=== PATIENT | male | born 1935 | race Caucasian/White ===

== ENCOUNTER 2017-04-22 08:43 | Inpatient (IN) | payer MEDICARE, OTHER ==
[~2017-04-22] VITALS: Ht 172.7 cm; Wt 70.8 kg
[~2017-04-22 08:43] MED LIST: ALBU1.25 NEB; IPRA3AMP NEB; METO25TA2 PO; OSEL75CA PO; PANT40TA3 PO; PARO20TA99 PO
[2017-04-22 09:45] LABS: CREATININE 1.4 mg/dL (0.7-1.3); GFR 48.8
[2017-04-22] MEDS ORDERED: CHOL10003 PO (10:06)
[2017-04-22] MEDS ORDERED: IPRA12.9 IH (10:06)
[2017-04-22] MEDS ORDERED: CALC-30 PO (10:06)
[2017-04-22] MEDS ORDERED: ASPI-612 PO (10:06)
[2017-04-22] MEDS ORDERED: ALBU8.5H8 INH (10:06)
[2017-04-22] MEDS ORDERED: IOHEXOL 300 MG/ML 75 ML VIAL. IV ONE (10:15)
[2017-04-22 10:44] LABS: ALBUMIN 3.9 g/dL (3.4-5.0); ALBUMIN/GLOBULIN RATIO 1.2 (1.0-1.7); CALCIUM 8.6 mg/dL (8.5-10.1); CREATININE 1.4 mg/dL (0.7-1.3); GFR 48.8; POTASSIUM 4.6 mmol/L (3.5-5.1); TOTAL BILIRUBIN 0.6 mg/dL (0.2-1.0); TOTAL PROTEIN 7.2 g/dL (6.4-8.2)
[2017-04-22 10:48] LABS: BASO % 0 % (0-3); EOS # 0.1 x10^3/uL (0.0-0.7); EOS % 1 % (0-3); HEMATOCRIT 40.9 % (39.0-53.0); HEMOGLOBIN 13.6 g/dL (13.0-17.5); LYMPH # 0.4 x10^3/uL (1.0-4.8); LYMPH % 6 % (24-48); MEAN CORPUSCULAR HEMOGLOBIN 33 pg (25-35); MEAN CORPUSCULAR HGB CONC 33 g/dL (31-37); MEAN CORPUSCULAR VOLUME 98 fL (79-100); MONO # 0.3 x10^3/uL (0.0-1.1); MONO % 4 % (0-9); NEUT # 6.4 x10^3uL (1.8-7.7); NEUT % 88 % (31-73); PLATELET COUNT 185 x10^3/uL (140-400); RED BLOOD COUNT 4.19 x10^6/uL (4.30-5.70); RED CELL DISTRIBUTION WIDTH 15.1 % (11.5-14.5); WHITE BLOOD COUNT 7.2 x10^3/uL (4.0-11.0)
[2017-04-22] MEDS ORDERED: AZIT500T2 PO (10:51)
[2017-04-22] MEDS ORDERED: METH4TAB2 PO (10:51)
[2017-04-22] MEDS ORDERED: CLOB15CR2 TP (10:51)
[2017-04-22] MEDS ORDERED: SIMV20TA3 PO (10:51)
[2017-04-22] MEDS ORDERED: FURO-68 PO (10:51)
[2017-04-22] MEDS ORDERED: PRED20TA PO (10:51)
[2017-04-22] MEDS ORDERED: OMEP20CA9 PO (10:51)
[2017-04-22] MEDS ORDERED: AZIT250T PO (10:51)
--- NOTE | 2017-04-22 11:18 | RAD ---
CTA of the chest with contrast, 04/22/2017: History: Chest pain, elevated d-dimer, shingles Multidetector CT imaging was performed following an IV bolus injection of iodinated contrast material. Multiplanar reconstructions were produced including coronal MIP images. No filling defects are seen in the central pulmonary arteries to suggest pulmonary emboli. There is moderate calcific plaquing of the thoracic aorta without evidence of aneurysm. Minimal coronary artery calcifications are noted. 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 Small mediastinal lymph nodes are noted without evidence of pathologic enlargement. Mildly enlarged hilar lymph nodes are present bilaterally. These nodes measure approximately 17 mm in greatest diameter on both sides. There are several scattered linear opacities in the lungs compatible with scarring and/or atelectasis. No significant pulmonary consolidation or pulmonary mass is seen. There is no evidence of pleural fluid. There are multiple thoracic vertebral compression fractures. Vertebroplasty change is noted at one level in the upper thoracic spine. Similar findings were present on the lateral chest radiograph from 01/10/2017. IMPRESSION: 1. No CT evidence of central pulmonary emboli. 2. Calcific plaquing of the aorta and coronary arteries. 3. Mild bilateral hilar adenopathy. 4. 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 Automated exposure control 2. Adjustment of the mA and/or kV according to patient size 3. Use of iterative reconstruction technique
[2017-04-22 11:25] VITALS: BP 162/71
[2017-04-22 12:11] VITALS: BP 162/71
[2017-04-22 12:32] LABS: BACTERIA,URINE 0 /HPF (0-FEW); BILIRUBIN,URINE NEG (NEG); CLARITY,URINE CLEAR; COLOR,URINE STRAW; GLUCOSE,URINE NEG (NEG); NITRITE,URINE NEG (NEG); RBC,URINE 0 /HPF (0-2); SQUAMOUS EPITHELIAL CELL,UR FEW /LPF; UROBILINOGEN,URINE 0.2 mg/dL (0.2 mg/dL); WBC,URINE 0 /HPF (0-4)
[2017-04-22] MEDS ORDERED: IPRA3AMP NEB (12:55)
[2017-04-22] MEDS ORDERED: FLUO15CR TP (12:55)
[2017-04-22] MEDS ORDERED: UMEC1DIS IH (12:55)
[2017-04-22] MEDS ORDERED: ACYC800T PO (12:57)
[2017-04-22] MEDS ORDERED: IPRATRPIUM/ALBUTEROL 0.5/2.5MG 3 ML NEBU. NEB PRN (13:30)
[2017-04-22] MEDS ORDERED: NON FORMULARY ITEM (Methylprednisolone (Medrol) 1 PKG) PO SCH (13:30)
[2017-04-22] MEDS: fentaNYL PF 100 MCG/2 ML VIAL IV PRN ×3 (14:08→18:35)
[2017-04-22 15:25] VITALS: BP 132/70
[2017-04-22] MEDS: ALBUTEROL SULFATE 2.5 MG/3 ML NEBU. NEB SCH ×2 (16:00→20:00)
[2017-04-22] MEDS ORDERED: FLUT1DIS3 IH (16:24)
--- NOTE | 2017-04-22 17:25 | CARD ---
APPROVED REPORT EXAM: Two-dimensional and M-mode echocardiogram with Doppler and color Doppler. Other Information Quality : Good INDICATION Chest Pain Mitral Valve Repair and Repair of Aortic Anuerysm 2D DIMENSIONS RVDd2.4 (2.9-3.5cm)Left Atrium(2D)3.6 (1.6-4.0cm) IVSd1.1 (0.7-1.1cm)Aortic Root(2D)2.6 (2.0-3.7cm) LVDd5.1 (3.9-5.9cm)LVOT Diameter2.2 (1.8-2.4cm) PWd1.0 (0.7-1.1cm)LVDs2.3 (2.5-4.0cm) FS (%) 30.0 %SV103.8 ml LVEF(%)60.0 (>50%) Aortic Valve AoV Peak Олег.173.0cm/sAoV VTI35.2cm AO Peak GR.12.0mmHgLVOT Peak Олег.109.3cm/s LVOT VTI 25.65cmAO Mean GR.6mmHg DIMITRIOS (VMAX)2.63bc8GVH (VTI)2.81cm2 Mitral Valve MV E Jpbnorea33.5cm/sMV E Peak Gr.8mmHg MV DECEL [id number] A Jirnnksq376.0cm/s MV E Mean Gr.2mmHgE/A Ratio0.7 Tricuspid Valve TR P. Djsutiry032uy/sRAP ENYOGAQS2swAb TR Peak Gr.59jcHrMXKM87kvBt Pulmonary Vein S1 Pyevufau38.6cm/sD2 Doegrvya28.0cm/s LEFT VENTRICLE The left ventricle is normal size. There is normal left ventricular wall thickness. The left ventricu lar systolic function is normal and the ejection fraction is within normal range. The Ejection Fracti on is 55-60%. There is normal LV segmental wall motion. Transmitral Doppler flow pattern is Grade I-a bnormal relaxation pattern. RIGHT VENTRICLE The right ventricle is normal size. The right ventricular systolic function is normal. ATRIA The left atrium size is normal. The right atrium size is normal. The interatrial septum is intact wit h no evidence for an atrial septal defect or patent foramen ovale as noted on 2-D or Doppler imaging. AORTIC VALVE The aortic valve is calcified but opens well. Doppler and Color Flow revealed trace to mild aortic re gurgitation. There is no significant aortic valvular stenosis. MITRAL VALVE The mitral valve has been repaired. There is no evidence of mitral valve prolapse. There is no mitral valve stenosis. Doppler and Color-flow revealed mild to moderate eccentric mitral regurgitatant jet. TRICUSPID VALVE The tricuspid valve is normal in structure and function. Doppler and Color Flow revealed mild to mode rate tricuspid regurgitation. There is moderate pulmonary hypertension. The PA pressure was estimated at 42 mmHg. There is no tricuspid valve stenosis. PULMONIC VALVE The pulmonary valve is normal in structure and function. Doppler and Color Flow revealed no pulmonic valvular regurgitation. There is no pulmonic valvular stenosis. GREAT VESSELS The aortic root is normal in size. The ascending aorta is not well seen but is mildly enlarged. The I VC is normal in size and collapses >50% with inspiration. PERICARDIAL EFFUSION There is no evidence of significant pericardial effusion. Critical Notification Critical Value: No <Conclusion> The left ventricle is normal size. The left ventricular systolic function is normal and the ejection fraction is within normal range. The Ejection Fraction is 55-60%. There is no significant aortic valvular stenosis. Doppler and Color Flow revealed trace to mild aortic regurgitation. The mitral valve has been repaired. Doppler and Color-flow revealed mild to moderate eccentric mitral regurgitatant jet. There is no mitral valve stenosis. Doppler and Color Flow revealed mild to moderate tricuspid regurgitation. There is moderate pulmonary hypertension. The PA pressure was estimated at 42 mmHg. The ascending aorta is not well seen but is mildly enlarged.
[2017-04-22] MEDS ORDERED: MEPERIDINE PF 50 MG/ML VIAL. IV PRN (18:00)
[2017-04-22] MEDS: HYDROcodone/APAP 7.5/325MG 1 TAB TABLET PO PRN (18:36)
[2017-04-22] MEDS: BUDESONIDE 0.5 MG/2 ML NEBU NEB SCH (18:49)
[2017-04-22 18:58] VITALS: BP 154/77
[2017-04-22] MEDS: CLOBETASOL EMOLLIENT 0.05% TOPICAL CREAM 15GM TUBE. TP SCH (20:21)
[2017-04-22] MEDS: CHOLECALCIFEROL (VITAMIN D3) 400 UNIT TABLET PO SCH (20:21)
[2017-04-22] MEDS: CALCIUM CARBONATE 500 MG TABLET PO SCH (20:21)
[2017-04-22 22:45] VITALS: BP 131/63
--- NOTE | 2017-04-23 01:00 | CONS ---
DATE OF CONSULTATION: 04/22/2017 CHIEF COMPLAINT: Pain, left eye. HISTORY OF PRESENT ILLNESS: This 81-year-old white male is admitted to the hospital for treatment of herpes zoster. Because he had two separate complaints of left eye pain over the past [address] Woods asked for consultation to rule out any involvement of herpes zoster in and around the eye. The patient states he had an episode of pain in the left eye and a little bit in the right eye 2 weeks ago when he thought he got weed killer in the eye. He went to [facility] and they wash the eye out and the symptoms went away. Three days ago, the same symptoms returned and had a feeling of foreign body in the left eye and then he broke out with a rash on the left shoulder and arm. After evaluated by Dr. Woods he was admitted. He denies any discharge or loss of vision in the eye. PAST MEDICAL HISTORY: Includes COPD. MEDICATIONS: Please see the medical record for a complete list in the EMR. FAMILY HISTORY: Noncontributory. ALLERGIES: Unknown. SOCIAL HISTORY: The patient is retired. PHYSICAL EXAMINATION: The exam is done at bedside. Visual acuity near with correction is 20/20 in each eye. Intraocular pressure by Nemesio-Pen is 13 in the right and 14 in the left. Motility is full. Visual mendes are full. Pupils equal, round, and reactive to light. No afferent pupillary defect. External appears normal on the left side. There is no evidence of skin lesions that would represent vesicular rash that would be consistent with herpes zoster. Slit lamp examination reveals the lid lashes, conjunctiva, cornea, and anterior chamber and iris to be normal. He does have a posterior chamber intraocular lens. IMPRESSION: 1. No evidence of herpes zoster ophthalmicus. 2. Periodic symptoms of burning and irritation. No cause noted today, although symptoms compatible with dry eye or simply ____ inflammation resulting in periodic burning, especially with recent warm weather. PLAN: No ocular treatment required at the present time. If I can be of assistance, please do not hesitate to contact me. HUI RODRÍGUEZ, DO SOLORZANO: ARABELLA/enrrique JOB#: [id number] / [id number]
[2017-04-23 05:25] VITALS: BP 150/82
[2017-04-23] MEDS: HYDROcodone/APAP 7.5/325MG 1 TAB TABLET PO PRN ×2 (05:30→11:28)
[2017-04-23 05:52] LABS: BASO % 0 % (0-3); EOS # 0.2 x10^3/uL (0.0-0.7); EOS % 3 % (0-3); HEMATOCRIT 41.9 % (39.0-53.0); LYMPH # 1.3 x10^3/uL (1.0-4.8); LYMPH % 19 % (24-48); MEAN CORPUSCULAR HEMOGLOBIN 33 pg (25-35); MEAN CORPUSCULAR HGB CONC 33 g/dL (31-37); MEAN CORPUSCULAR VOLUME 98 fL (79-100); MONO % 15 % (0-9); NEUT # 4.4 x10^3uL (1.8-7.7); NEUT % 63 % (31-73); PLATELET COUNT 192 x10^3/uL (140-400); RED BLOOD COUNT 4.28 x10^6/uL (4.30-5.70); RED CELL DISTRIBUTION WIDTH 14.7 % (11.5-14.5); WHITE BLOOD COUNT 6.9 x10^3/uL (4.0-11.0)
[2017-04-23 06:00] LABS: CALCIUM 9.1 mg/dL (8.5-10.1); CREATININE 1.1 mg/dL (0.7-1.3); GFR 64.4; POTASSIUM 4.2 mmol/L (3.5-5.1)
[2017-04-23] MEDS: ALBUTEROL SULFATE 2.5 MG/3 ML NEBU. NEB SCH ×4 (06:25→20:32)
[2017-04-23] MEDS: PANTOPRAZOLE 40 MG TABLET. PO SCH (08:16)
[2017-04-23] MEDS: CALCIUM CARBONATE 500 MG TABLET PO SCH (08:18)
[2017-04-23] MEDS: PARoxetine 20 MG TABLET PO SCH (08:18)
[2017-04-23] MEDS: METOPROLOL SUCC 24HR ER 25 MG TAB.ER.24H. PO SCH ×2 (08:18→19:25)
[2017-04-23] MEDS: predniSONE 20 MG TABLET PO SCH (08:18)
[2017-04-23] MEDS: ASPIRIN ENTERIC COATED 81 MG TABLET.DR. PO SCH (08:19)
[2017-04-23] MEDS: CHOLECALCIFEROL (VITAMIN D3) 1,000 UNIT TABLET PO SCH (08:19)
[2017-04-23] MEDS: CLOBETASOL EMOLLIENT 0.05% TOPICAL CREAM 15GM TUBE. TP SCH ×2 (08:20→19:26)
[2017-04-23] MEDS: CHOLECALCIFEROL (VITAMIN D3) 400 UNIT TABLET PO SCH (08:20)
[2017-04-23] MEDS ORDERED: FUROSEMIDE 40 MG TABLET PO SCH (09:00)
[2017-04-23] MEDS ORDERED: ACYCLOVIR 200 MG CAPSULE PO SCH (09:00)
[2017-04-23] MEDS ORDERED: NON FORMULARY ITEM (Umeclidinium Brm/Vilanterol Tr (Anoro Ellipta 62.5-25 Mcg Inh) 1 EACH) IH SCH (09:00)
[2017-04-23] MEDS: BUDESONIDE 0.5 MG/2 ML NEBU NEB SCH ×2 (10:56→20:31)
[2017-04-23 10:57] VITALS: BP 132/61
[2017-04-23] MEDS: ACYCLOVIR 200 MG CAPSULE PO SCH ×2 (14:04→19:25)
[2017-04-23] MEDS: GABAPENTIN 100 MG CAPSULE. PO SCH ×2 (14:04→19:26)
--- NOTE | 2017-04-23 15:15 | PDOC2 ---
CONSULT Date of Admission DATE: 04/23/17 TIME: 15:07 Reason for Consult: Herpes zoster and chest discomfort Referring Physician: Dr. Woods Chief Complaint Shoulder and chest discomfort Source: Patient Problem List The patient is a pleasant 81-year-old male admitted for treatment of herpes zoster and evaluation of chest discomfort. His chest CTA yesterday showed no evidence of pulmonary emboli, it did show calcification of the aorta and the coronary vessels and mild bilateral hilar adenopathy. Cardiac workup has included normal troponins. An echocardiogram performed yesterday showed normal left ventricular systolic function with mild to moderate mitral and tricuspid regurgitation. Overall the patient states he feels well. His discomfort is in the area of his herpes zoster. It is not affected by exertion. Of note the patient was also evaluated by ophthalmology due to left eye pain. History of Present Illness Please see above. Cardiovascular: HTN Family History: Heart Disease Smoke: No Current Medications Current Medications Iohexol (Omnipaque 300 Mg/ml) 60 ml 1X ONCE IV Last administered on 04/22/17 10:45; Start 04/22/17 at 10:15; Stop 04/22/17 at 10:16; Status DC Aspirin (Aspirin Enteric Coated) 40.5 mg DAILY PO Last administered on 08:19; Start 04/23/17 at 09:00 Vitamin D (Vitamin D3) 1,000 unit DAILY PO Last administered on 04/23/17 08:19 ; Start 04/23/17 at 09:00 Clobetasol Propionate 1 marge BID TP Last administered on 04/23/17 08:20; Start 04/22/17 at 21:00 Furosemide (Lasix) 40 mg DAILY PO ; Start 04/23/17 at 09:00; Stop 04/23/17 at 09 :00; Status DC Metoprolol Succinate (Toprol Xl) 12.5 mg BID PO Last administered on 04/23/17 08:18; Start 04/23/17 at 09:00 Paroxetine HCl (Paxil) 40 mg DAILY PO Last administered on 04/23/17 08:18; Start 04/23/17 at 09:00 Prednisone (Prednisone) 20 mg DAILY PO Last administered on 04/23/17 08:18; Start 04/23/17 at 09:00 Acyclovir (Zovirax) 800 mg DAILY PO Last administered on 04/23/17 08:16; Start 04/23/17 at 09:00; Stop 04/23/17 at 09:12; Status DC Calcium Carbonate/ Glycine (Oscal) 500 mg BID PO Last administered on 08:18; Start 04/22/17 at 21:00; Stop 04/23/17 at 08:57; Status DC Pantoprazole Sodium (Protonix) 40 mg DAILYAC PO Last administered on 04/23/17 08:16; Start 04/23/17 at 07:30 Non-Formulary Medication 1 each DAILY IH ; Start 04/23/17 at 09:00; Stop at 09:00; Status DC Albuterol/ Ipratropium (Duoneb) 3 ml PRN TID PRN NEB SOA; Start 04/22/17 at 13: 30 Non-Formulary Medication 1 pkg 1X PO ; Start 04/22/17 at 13:30; Stop 04/22/17 at 13:48; Status DC Fentanyl Citrate (Fentanyl 2ml Vial) 25 mcg PRN Q2HR PRN IV PAIN Last administered on 04/22/17 18:35; Start 04/22/17 at 13:45 Vitamin D (Vitamin D3) 200 unit BID PO Last administered on 04/23/17 08:20; Start 04/22/17 at 21:00; Stop 04/23/17 at 08:58; Status DC Albuterol Sulfate (Ventolin) 2.5 mg RTQID NEB Last administered on 04/23/17 10 :56; Start 04/22/17 at 16:00 Budesonide (Pulmicort) 0.5 mg RTBID NEB Last administered on 04/23/17 10:56; Start 04/22/17 at 20:00 Meperidine HCl (Demerol) 25 mg PRN Q4HRS PRN IV PAIN; Start 04/22/17 at 18:00; Stop 04/22/17 at 18:29; Status DC Acetaminophen/ Hydrocodone Bitart (Lortab 7.5/325) 1 tab PRN Q6HRS PRN PO PAIN Last administered on 04/22/17 18:36; Start 04/22/17 at 18:15 Acetaminophen/ Hydrocodone Bitart (Lortab 7.5/325) 2 tab PRN Q6HRS PRN PO PAIN Last administered on 04/23/17 11:28; Start 04/22/17 at 18:15 Calcium/Vitamin D (Oscal D 500mg/ 200uts) 1 tab BIDWMEALS PO ; Start 04/23/17 at 17:00 Acyclovir (Zovirax) 800 mg TID PO Last administered on 04/23/17 14:04; Start 04/23/17 at 14:00 Gabapentin (Neurontin) 100 mg TID PO Last administered on 04/23/17 14:04; Start 04/23/17 at 14:00 Active Scripts Active Reported Advair 250-50 Diskus (Fluticasone/Salmeterol) 1 Each Disk.w.dev 1 Puff IH BID Acyclovir 800 Mg Tablet 800 Mg PO DAILY Anoro Ellipta 62.5-25 Mcg Inh (Umeclidinium Brm/Vilanterol Tr) 1 Each Disk.w.dev 1 Each IH DAILY Duoneb 0.5-3(2.5) Mg/3 Ml (Albuterol/Ipratropium) 3 Ml Ampul.neb 3 Ml NEB PRN TID Fluocinonide 15 Gm Cream..g. 1 Marge TP TID Omeprazole 20 Mg Capsule.dr 1 Cap PO DAILY Lasix (Furosemide) 40 Mg Tablet 1 Tab PO DAILY Zithromax (Azithromycin) 250 Mg Tablet 250 Mg PO DAILY Zithromax Tri-Ivan (Azithromycin) 500 Mg Tablet 1 Tab PO 1X Prednisone 20 Mg Tablet 1 Tab PO DAILY Medrol (Methylprednisolone) 4 Mg Tab.ds.pk 1 Pkg PO 1X Clobetasol Emollient 0.05% Crm (Clobetasol Propionate/Emoll) 15 Gm Cream..g. 15 Gm TP BID Calcium 500 + Vit D 400 Tablet (Calcium Carbonate/Vitamin D3) 1 Each Tablet 1 Each PO BID Aspirin Ec (Aspirin) 81 Mg Tablet. 0.5 Tab PO DAILY Atrovent Hfa (Ipratropium Nuevo) 12.9 Gm Hfa.aer.ad 2 Puff IH QID Proair Hfa Inhaler (Albuterol Sulfate) 8.5 Gm Hfa.aer.ad 2 Puff INH QID Vitamin D3 (Cholecalciferol (Vitamin D3)) 1,000 Unit Tablet 1 Tab PO DAILY Paxil (Paroxetine Hcl) 20 Mg Tablet 2 Tab PO DAILY last dose this morning next dose tomorrow Toprol Xl (Metoprolol Succinate) 25 Mg Tab.er.24h 0.5 Tab PO BID last dose this morning next dose tomorrow Allergies: Coded Allergies: clonazepam (Verified Allergy, Severe, rash, 04/22/17) tamsulosin (Verified Allergy, Severe, rash, 04/22/17) codeine (Verified Allergy, Intermediate, 04/22/17) morphine (Verified Allergy, Intermediate, 01/10/17) General: YES: Fatigue Skin: YES: Other (discomfort due to herpes zoster infection as above.) General: mild distress HEENT: Atraumatic Lungs: Clear to auscultation Heart: Regular rate Abdomen: Normal bowel sounds Extremities: No clubbing VITALS Vital Signs Date Time Temp Pulse Resp B/P (MAP) Pulse Ox O2 Delivery O2 Flow Rate FiO2 04/23/17 12:24 93 Room Air 04/23/17 10:57 97.4 68 16 132/61 (84) Labs Laboratory Tests Test 04/22/17 09:29 04/22/17 10:33 04/22/17 11:30 04/22/17 16:45 Sodium Level 140 mmol/L (136-145) Potassium Level 4.6 mmol/L (3.5-5.1) Chloride Level 106 mmol/L (98-107) Carbon Dioxide Level 25 mmol/L (21-32) Anion Gap 9 (6-14) Blood Urea Nitrogen 29 mg/dL (8-26) Creatinine 1.4 mg/dL (0.7-1.3) Estimated GFR (Cockcroft-Gault) 48.8 BUN/Creatinine Ratio 21 (6-20) Glucose Level 100 mg/dL (70-99) Calcium Level 8.6 mg/dL (8.5-10.1) Total Bilirubin 0.6 mg/dL (0.2-1.0) Aspartate Amino Transf (AST/SGOT) 19 U/L (15-37) Alanine Aminotransferase (ALT/SGPT) 28 U/L (16-63) Alkaline Phosphatase 88 U/L (46-116) Creatine Kinase 57 U/L (39-308) Troponin I Quantitative < 0.017 ng/mL (0-0.055) < 0.017 ng/mL (0-0.055) DR-Kai-V-Type Natriuretic Peptide 368 pg/mL (0-449) Total Protein 7.2 g/dL (6.4-8.2) Albumin 3.9 g/dL (3.4-5.0) Albumin/Globulin Ratio 1.2 (1.0-1.7) White Blood Count 7.2 x10^3/uL (4.0-11.0) Red Blood Count 4.19 x10^6/uL (4.30-5.70) Hemoglobin 13.6 g/dL (13.0-17.5) Hematocrit 40.9 % (39.0-53.0) Mean Corpuscular Volume 98 fL (79-100) Mean Corpuscular Hemoglobin 33 pg (25-35) Mean Corpuscular Hemoglobin Concent 33 g/dL (31-37) Red Cell Distribution Width 15.1 % (11.5-14.5) Platelet Count 185 x10^3/uL (140-400) Neutrophils (%) (Auto) 88 % (31-73) Lymphocytes (%) (Auto) 6 % (24-48) Monocytes (%) (Auto) 4 % (0-9) Eosinophils (%) (Auto) 1 % (0-3) Basophils (%) (Auto) 0 % (0-3) Neutrophils # (Auto) 6.4 x10^3uL (1.8-7.7) Lymphocytes # (Auto) 0.4 x10^3/uL (1.0-4.8) Monocytes # (Auto) 0.3 x10^3/uL (0.0-1.1) Eosinophils # (Auto) 0.1 x10^3/uL (0.0-0.7) Basophils # (Auto) 0.0 x10^3/uL (0.0-0.2) Urine Collection Type Unknown Urine Color Straw Urine Clarity Clear Urine pH 6.5 Urine Specific Warren 1.010 Urine Protein Neg (NEG-TRACE) Urine Glucose (UA) Neg mg/dL (NEG) Urine Ketones (Stick) Neg mg/dL (NEG) Urine Blood Neg (NEG) Urine Nitrite Neg (NEG) Urine Bilirubin Neg (NEG) Urine Urobilinogen Dipstick 0.2 mg/dL (0.2 mg/dL) Urine Leukocyte Esterase Neg (NEG) Urine RBC 0 /HPF (0-2) Urine WBC 0 /HPF (0-4) Urine Squamous Epithelial Cells Few /LPF Urine Bacteria 0 /HPF (0-FEW) Test 04/22/17 22:15 04/23/17 05:10 04/23/17 05:15 Troponin I Quantitative < 0.017 ng/mL (0-0.055) < 0.017 ng/mL (0-0.055) White Blood Count 6.9 x10^3/uL (4.0-11.0) Red Blood Count 4.28 x10^6/uL (4.30-5.70) Hemoglobin 14.0 g/dL (13.0-17.5) Hematocrit 41.9 % (39.0-53.0) Mean Corpuscular Volume 98 fL (79-100) Mean Corpuscular Hemoglobin 33 pg (25-35) Mean Corpuscular Hemoglobin Concent 33 g/dL (31-37) Red Cell Distribution Width 14.7 % (11.5-14.5) Platelet Count 192 x10^3/uL (140-400) Neutrophils (%) (Auto) 63 % (31-73) Lymphocytes (%) (Auto) 19 % (24-48) Monocytes (%) (Auto) 15 % (0-9) Eosinophils (%) (Auto) 3 % (0-3) Basophils (%) (Auto) 0 % (0-3) Neutrophils # (Auto) 4.4 x10^3uL (1.8-7.7) Lymphocytes # (Auto) 1.3 x10^3/uL (1.0-4.8) Monocytes # (Auto) 1.0 x10^3/uL (0.0-1.1) Eosinophils # (Auto) 0.2 x10^3/uL (0.0-0.7) Basophils # (Auto) 0.0 x10^3/uL (0.0-0.2) Sodium Level 140 mmol/L (136-145) Potassium Level 4.2 mmol/L (3.5-5.1) Chloride Level 105 mmol/L (98-107) Carbon Dioxide Level 26 mmol/L (21-32) Anion Gap 9 (6-14) Blood Urea Nitrogen 22 mg/dL (8-26) Creatinine 1.1 mg/dL (0.7-1.3) Estimated GFR (Cockcroft-Gault) 64.4 Glucose Level 101 mg/dL (70-99) Calcium Level 9.1 mg/dL (8.5-10.1) Magnesium Level 2.2 mg/dL (1.8-2.4) Images Chest CTA shows no pulmonary emboli, it does show calcification of the aorta and coronary arteries. There is mild bilateral hilar adenopathy. Echocardiogram shows normal left ventricular systolic function with mild to moderate mitral regurgitation and tricuspid regurgitation and pulmonary artery pressures of 42 mmHg. Assessment/Plan 1. Herpes zoster infection. Ongoing treatment as above. Evaluation by ophthalmology showed no significant involvement of the left eye. 2. Chest discomfort. Discomfort is difficult to separate from the patient's herpes zoster infection. Objective data shows no elevation in troponin. Echocardiogram shows normal left ventricular systolic function. The pain is not related to exertion. At this time would continue present treatments and repeat an EKG. 3. Hypertension. Under good control. 4. Further records pending. Thank you for allowing us to participate in the care of you patient. Problems: GEOVANNY BOSWELL MD Apr 23, 2017 15:15
[2017-04-23 15:43] VITALS: BP 122/63
[2017-04-23] MEDS: CALCIUM CARB/VIT D3 500/200 TABLET PO SCH (16:58)
--- NOTE | 2017-04-23 19:05 | EKG ---
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
[2017-04-23 19:16] VITALS: BP 134/74
--- NOTE | 2017-04-23 23:48 | PN ---
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 Blood pressure 150/82, respiratory rate 20, pulse 60, and afebrile. The patient has done well a little better, but still in quite a bit of pain, trying to regulate his pain medications as well as receiving IV acyclovir as he has failed outpatient therapy. He did have a positive D-dimer, basically no pulmonary emboli, but old thoracic vertebral compression fractures and basilar hilar adenopathy. OBJECTIVE: GENERAL: The patient otherwise is alert and oriented. VITAL SIGNS: Blood pressure 150/80, respiratory rate 20, pulse 60, afebrile. EXTREMITIES: A blistering rash down his left arm through his neck as noted. PLAN: We will continue to be IV acyclovir and make further evaluation on him as indicated. No evidence of herpes zoster ophthalmicus. Continue on IV acyclovir, pain medication for adjustment. TODD CARRION MD DR: NASEEM/enrrique JOB#: [id number] / [id number]
[2017-04-23 23:50] VITALS: BP 160/82
[2017-04-24] MEDS: ALBUTEROL SULFATE 2.5 MG/3 ML NEBU. NEB SCH ×4 (05:38→21:01)
[2017-04-24 06:01] VITALS: BP 155/83
[2017-04-24] MEDS: CLOBETASOL EMOLLIENT 0.05% TOPICAL CREAM 15GM TUBE. TP SCH ×2 (08:11→19:59)
[2017-04-24] MEDS: predniSONE 20 MG TABLET PO SCH (08:12)
[2017-04-24] MEDS: GABAPENTIN 100 MG CAPSULE. PO SCH ×3 (08:12→19:58)
[2017-04-24] MEDS: CHOLECALCIFEROL (VITAMIN D3) 1,000 UNIT TABLET PO SCH (08:12)
[2017-04-24] MEDS: PARoxetine 20 MG TABLET PO SCH (08:12)
[2017-04-24] MEDS: PANTOPRAZOLE 40 MG TABLET. PO SCH (08:12)
[2017-04-24] MEDS: METOPROLOL SUCC 24HR ER 25 MG TAB.ER.24H. PO SCH ×2 (08:12→19:58)
[2017-04-24] MEDS: CALCIUM CARB/VIT D3 500/200 TABLET PO SCH ×2 (08:12→17:01)
[2017-04-24] MEDS: ASPIRIN ENTERIC COATED 81 MG TABLET.DR. PO SCH (08:13)
[2017-04-24] MEDS: ACYCLOVIR 200 MG CAPSULE PO SCH ×3 (08:18→19:58)
[2017-04-24] MEDS: HYDROcodone/APAP 7.5/325MG 1 TAB TABLET PO PRN ×2 (09:32→19:57)
[2017-04-24] MEDS: BUDESONIDE 0.5 MG/2 ML NEBU NEB SCH ×2 (10:46→21:01)
[2017-04-24 11:02] VITALS: BP 115/60
--- NOTE | 2017-04-24 13:15 | PDOC ---
PROGRESS NOTES Assessment Assessment/Plan 1. Herpes zoster infection. Ongoing treatment as above. Evaluation by ophthalmology showed no significant involvement of the left eye. Treatment as above. 2. Chest discomfort. Discomfort is difficult to separate from the patient's herpes zoster infection. Objective data shows no elevation in troponin. Echocardiogram shows normal left ventricular systolic function. The pain is not related to exertion. The patient is feeling better today. At this time would continue present treatments. 3. Hypertension. Under good control. Subjective The patient looks and feels better today. Objective Vital Signs Date Time Temp Pulse Resp B/P (MAP) Pulse Ox O2 Delivery O2 Flow Rate FiO2 04/24/17 11:09 98 Room Air 04/24/17 11:02 98.3 69 20 115/60 (78) Intake and Output 04/24/17 07:00 Intake Total 640 ml Balance 640 ml Intake Oral 640 ml # Voids 5 Physical Exam Neck shows no JVD or bruit. Chest is clear to auscultation and percussion. CV is regular rate and rhythm. Abdomen is soft without masses or tenderness. Review of Relevant I have reviewed the following items marlon (where applicable) has been applied. Labs Laboratory Tests Test 04/22/17 16:45 04/22/17 22:15 04/23/17 05:10 04/23/17 05:15 Troponin I Quantitative < 0.017 ng/mL (0-0.055) < 0.017 ng/mL (0-0.055) < 0.017 ng/mL (0-0.055) White Blood Count 6.9 x10^3/uL (4.0-11.0) Red Blood Count 4.28 x10^6/uL (4.30-5.70) Hemoglobin 14.0 g/dL (13.0-17.5) Hematocrit 41.9 % (39.0-53.0) Mean Corpuscular Volume 98 fL (79-100) Mean Corpuscular Hemoglobin 33 pg (25-35) Mean Corpuscular Hemoglobin Concent 33 g/dL (31-37) Red Cell Distribution Width 14.7 % (11.5-14.5) Platelet Count 192 x10^3/uL (140-400) Neutrophils (%) (Auto) 63 % (31-73) Lymphocytes (%) (Auto) 19 % (24-48) Monocytes (%) (Auto) 15 % (0-9) Eosinophils (%) (Auto) 3 % (0-3) Basophils (%) (Auto) 0 % (0-3) Neutrophils # (Auto) 4.4 x10^3uL (1.8-7.7) Lymphocytes # (Auto) 1.3 x10^3/uL (1.0-4.8) Monocytes # (Auto) 1.0 x10^3/uL (0.0-1.1) Eosinophils # (Auto) 0.2 x10^3/uL (0.0-0.7) Basophils # (Auto) 0.0 x10^3/uL (0.0-0.2) Sodium Level 140 mmol/L (136-145) Potassium Level 4.2 mmol/L (3.5-5.1) Chloride Level 105 mmol/L (98-107) Carbon Dioxide Level 26 mmol/L (21-32) Anion Gap 9 (6-14) Blood Urea Nitrogen 22 mg/dL (8-26) Creatinine 1.1 mg/dL (0.7-1.3) Estimated GFR (Cockcroft-Gault) 64.4 Glucose Level 101 mg/dL (70-99) Calcium Level 9.1 mg/dL (8.5-10.1) Magnesium Level 2.2 mg/dL (1.8-2.4) Microbiology 04/22/17 Blood Culture - Preliminary, Resulted NO GROWTH AFTER 2 DAYS 04/22/17 Urine Culture - Final, Complete 04/22/17 Urine Culture Result 1 (SALVATORE) - Final, Complete Medications Current Medications Iohexol (Omnipaque 300 Mg/ml) 60 ml 1X ONCE IV Last administered on 04/22/17 10:45; Start 04/22/17 at 10:15; Stop 04/22/17 at 10:16; Status DC Aspirin (Aspirin Enteric Coated) 40.5 mg DAILY PO Last administered on 08:13; Start 04/23/17 at 09:00 Vitamin D (Vitamin D3) 1,000 unit DAILY PO Last administered on 04/24/17 08:12 ; Start 04/23/17 at 09:00 Clobetasol Propionate 1 marge BID TP Last administered on 04/24/17 08:11; Start 04/22/17 at 21:00 Furosemide (Lasix) 40 mg DAILY PO ; Start 04/23/17 at 09:00; Stop 04/23/17 at 09 :00; Status DC Metoprolol Succinate (Toprol Xl) 12.5 mg BID PO Last administered on 04/24/17 08:12; Start 04/23/17 at 09:00 Paroxetine HCl (Paxil) 40 mg DAILY PO Last administered on 04/24/17 08:12; Start 04/23/17 at 09:00 Prednisone (Prednisone) 20 mg DAILY PO Last administered on 04/24/17 08:12; Start 04/23/17 at 09:00 Acyclovir (Zovirax) 800 mg DAILY PO Last administered on 04/23/17 08:16; Start 04/23/17 at 09:00; Stop 04/23/17 at 09:12; Status DC Calcium Carbonate/ Glycine (Oscal) 500 mg BID PO Last administered on 08:18; Start 04/22/17 at 21:00; Stop 04/23/17 at 08:57; Status DC Pantoprazole Sodium (Protonix) 40 mg DAILYAC PO Last administered on 04/24/17 08:12; Start 04/23/17 at 07:30 Non-Formulary Medication 1 each DAILY IH ; Start 04/23/17 at 09:00; Stop at 09:00; Status DC Albuterol/ Ipratropium (Duoneb) 3 ml PRN TID PRN NEB SOA; Start 04/22/17 at 13: 30 Non-Formulary Medication 1 pkg 1X PO ; Start 04/22/17 at 13:30; Stop 04/22/17 at 13:48; Status DC Fentanyl Citrate (Fentanyl 2ml Vial) 25 mcg PRN Q2HR PRN IV PAIN Last administered on 04/22/17 18:35; Start 04/22/17 at 13:45 Vitamin D (Vitamin D3) 200 unit BID PO Last administered on 04/23/17 08:20; Start 04/22/17 at 21:00; Stop 04/23/17 at 08:58; Status DC Albuterol Sulfate (Ventolin) 2.5 mg RTQID NEB Last administered on 04/24/17 10 :46; Start 04/22/17 at 16:00 Budesonide (Pulmicort) 0.5 mg RTBID NEB Last administered on 04/24/17 10:46; Start 04/22/17 at 20:00 Meperidine HCl (Demerol) 25 mg PRN Q4HRS PRN IV PAIN; Start 04/22/17 at 18:00; Stop 04/22/17 at 18:29; Status DC Acetaminophen/ Hydrocodone Bitart (Lortab 7.5/325) 1 tab PRN Q6HRS PRN PO PAIN Last administered on 04/24/17 09:32; Start 04/22/17 at 18:15 Acetaminophen/ Hydrocodone Bitart (Lortab 7.5/325) 2 tab PRN Q6HRS PRN PO PAIN Last administered on 04/23/17 11:28; Start 04/22/17 at 18:15 Calcium/Vitamin D (Oscal D 500mg/ 200uts) 1 tab BIDWMEALS PO Last administered on 04/24/17 08:12; Start 04/23/17 at 17:00 Acyclovir (Zovirax) 800 mg TID PO Last administered on 04/24/17 08:18; Start 04/23/17 at 14:00 Gabapentin (Neurontin) 100 mg TID PO Last administered on 04/24/17 08:12; Start 04/23/17 at 14:00 Active Scripts Active Reported Advair 250-50 Diskus (Fluticasone/Salmeterol) 1 Each Disk.w.dev 1 Puff IH BID Acyclovir 800 Mg Tablet 800 Mg PO DAILY Anoro Ellipta 62.5-25 Mcg Inh (Umeclidinium Brm/Vilanterol Tr) 1 Each Disk.w.dev 1 Each IH DAILY Duoneb 0.5-3(2.5) Mg/3 Ml (Albuterol/Ipratropium) 3 Ml Ampul.neb 3 Ml NEB PRN TID Fluocinonide 15 Gm Cream..g. 1 Marge TP TID Omeprazole 20 Mg Capsule.dr 1 Cap PO DAILY Lasix (Furosemide) 40 Mg Tablet 1 Tab PO DAILY Zithromax (Azithromycin) 250 Mg Tablet 250 Mg PO DAILY Zithromax Tri-Ivan (Azithromycin) 500 Mg Tablet 1 Tab PO 1X Prednisone 20 Mg Tablet 1 Tab PO DAILY Medrol (Methylprednisolone) 4 Mg Tab.ds.pk 1 Pkg PO 1X Clobetasol Emollient 0.05% Crm (Clobetasol Propionate/Emoll) 15 Gm Cream..g. 15 Gm TP BID Calcium 500 + Vit D 400 Tablet (Calcium Carbonate/Vitamin D3) 1 Each Tablet 1 Each PO BID Aspirin Ec (Aspirin) 81 Mg Tablet.dr 0.5 Tab PO DAILY Atrovent Hfa (Ipratropium [place]) 12.9 Gm Hfa.aer.ad 2 Puff IH QID Proair Hfa Inhaler (Albuterol Sulfate) 8.5 Gm Hfa.aer.ad 2 Puff INH QID Vitamin D3 (Cholecalciferol (Vitamin D3)) 1,000 Unit Tablet 1 Tab PO DAILY Paxil (Paroxetine Hcl) 20 Mg Tablet 2 Tab PO DAILY last dose this morning next dose tomorrow Toprol Xl (Metoprolol Succinate) 25 Mg Tab.er.24h 0.5 Tab PO BID last dose this morning next dose tomorrow Vitals/I & O Vital Sign - Last 24 Hours 04/23/17 04/23/17 04/23/17 04/23/17 15:43 16:08 19:16 19:25 Temp 97.9 97.8 Pulse 72 81 81 Resp 20 20 B/P (MAP) 122/63 (82) 134/74 (94) 134/74 Pulse Ox 93 95 97 O2 Delivery Room Air Room Air Room Air 04/23/17 04/23/17 04/23/17 04/23/17 19:52 20:30 20:34 23:50 Pulse 75 Resp 20 B/P (MAP) 160/82 (108) Pulse Ox 94 92 O2 Delivery Room Air Room Air Room Air Room Air 04/24/17 04/24/17 04/24/17 04/24/17 05:40 06:01 08:00 08:12 Temp 97.6 Pulse 66 66 Resp 20 B/P (MAP) 155/83 (107) 155/83 Pulse Ox 96 94 O2 Delivery Room Air Room Air Room Air 04/24/17 04/24/17 04/24/17 04/24/17 09:32 10:46 10:48 11:02 Temp 98.3 Pulse 69 Resp 20 B/P (MAP) 115/60 (78) Pulse Ox 94 96 96 98 O2 Delivery Room Air Room Air Room Air Room Air 04/24/17 11:09 Pulse Ox 98 O2 Delivery Room Air Intake and Output 04/23/17 04/23/17 04/24/17 15:00 23:00 07:00 Intake Total 360 ml 160 ml 120 ml Balance 360 ml 160 ml 120 ml GEOVANNY BOSWELL MD Apr 24, 2017 13:15
[2017-04-24 16:11] VITALS: BP 152/71
[2017-04-24 19:59] VITALS: BP 127/69
[2017-04-24 23:00] VITALS: BP 125/71
--- NOTE | 2017-04-25 05:33 | PN ---
DATE: SUBJECTIVE: The patient in with herpes zoster shingles. The patient is resting fairly comfortably, although still fairly weak, running low grade temperature. The patient is developing new lesions of the shingles, still receiving some IV pain medications as well for the pain, which is not controlled just with oral medications. Otherwise, he is alert and oriented. Speech fluent and spontaneous and appropriate. PHYSICAL EXAMINATION: VITAL SIGNS: Blood pressure 120/60, respiratory rate 20, pulse 70, afebrile presently. GENERAL: The patient alert and oriented. LUNGS: Clear. CARDIOVASCULAR: Stable. EXTREMITIES: The patient does have new rashes on his left arm, with blistering. I have increased his medications to the element of the acyclovir to help take down the spread of this disease that did not respond to outpatient therapy otherwise. IMPRESSION: Herpes zoster, intractable pain, mild confusion. PLAN: Continue on the present drug regimen, pain management. TODD CARRION MD DR: NASEEM/enrrique JOB#: [id number] / [id number]
[2017-04-25] MEDS: ALBUTEROL SULFATE 2.5 MG/3 ML NEBU. NEB SCH ×2 (05:38→11:08)
[2017-04-25 06:31] VITALS: BP 139/76
[2017-04-25 08:10] VITALS: BP 139/76
[2017-04-25] MEDS: ACYCLOVIR 200 MG CAPSULE PO SCH (08:10)
[2017-04-25] MEDS: HYDROcodone/APAP 7.5/325MG 1 TAB TABLET PO PRN (08:10)
[2017-04-25] MEDS: METOPROLOL SUCC 24HR ER 25 MG TAB.ER.24H. PO SCH (08:10)
[2017-04-25] MEDS: CALCIUM CARB/VIT D3 500/200 TABLET PO SCH (08:10)
[2017-04-25] MEDS: GABAPENTIN 100 MG CAPSULE. PO SCH (08:11)
[2017-04-25] MEDS: ASPIRIN ENTERIC COATED 81 MG TABLET.DR. PO SCH (08:11)
[2017-04-25] MEDS: PANTOPRAZOLE 40 MG TABLET. PO SCH (08:11)
[2017-04-25] MEDS: CHOLECALCIFEROL (VITAMIN D3) 1,000 UNIT TABLET PO SCH (08:11)
[2017-04-25] MEDS: PARoxetine 20 MG TABLET PO SCH (08:11)
[2017-04-25] MEDS: predniSONE 20 MG TABLET PO SCH (08:12)
[2017-04-25] MEDS: CLOBETASOL EMOLLIENT 0.05% TOPICAL CREAM 15GM TUBE. TP SCH (08:12)
[2017-04-25] MEDS ORDERED: DOCUSATE SODIUM 100 MG CAPSULE PO SCH (09:00)
[2017-04-25] MEDS: BUDESONIDE 0.5 MG/2 ML NEBU NEB SCH (11:08)
[2017-04-25] MEDS ORDERED: GABA-585 PO (13:07)
[2017-04-25] MEDS ORDERED: ACYC-63 PO (13:07)
[2017-04-25] MEDS ORDERED: HYDR-2762 PO (13:07)
[2017-04-25] MEDS ORDERED: DONE10TA61 PO (13:09)
[2017-04-25] MEDS ORDERED: ACYCLOVIR 200 MG CAPSULE PO SCH (14:00)
--- NOTE | 2017-06-08 18:46 | DS ---
DATE OF DISCHARGE: 04/25/2017 HOSPITAL COURSE: An 81-year-old gentleman. The patient was initially admitted with treatment for Herpes zoster. The patient also has severe eye pain. Dr. Rosario was consulted, was kind enough to review the patient. He had been at the [facility] and I watched his eye out 3 days ago, but the feeling of something was still in there. The patient was cleared of any Herpes zoster ophthalmicus and otherwise was given IV acyclovir. He was also having some chest pain and weakness there. The patient was seen by Dr. 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 The patient otherwise made good progress during the rest of his hospitalization. Cardiac enzymes were all within range. Serology did show a positive Herpes zoster virus, antibody IgG greater than 4000. The patient otherwise made good progress during the rest of his hospitalization. There were no complications. IMPRESSION: Herpes zoster, chest pain, intractable pain, mild confusion, generalized weakness, failure to thrive. The patient will be discharged home on regular diet, decreased activity. Follow up with Cardiology and Dr. Rosario as an outpatient as well as myself and make further evaluation on him as indicated per those results. TODD CARRION MD DR: NASEEM/nts JOB#: [id number] / [id number]
== END 2017-04-25 14:03 | disposition home or self-care (01) | DRG 595 ==
LOC: 1 SOUTH 09:15
PROVIDERS: ADMIT Family Medicine; ATTEND Family Medicine
DX: B02.9 Zoster without complications (principal); G93.40 Encephalopathy, unspecified; N17.9 Acute kidney failure, unspecified; I10 Essential (primary) hypertension; I08.1 Rheumatic disorders of both mitral and tricuspid valves; B02.29 Other postherpetic nervous system involvement; J44.9 Chronic obstructive pulmonary disease, unspecified; H57.12 Ocular pain, left eye; R62.7 Adult failure to thrive
CPT/HCPCS: 36415; 71275; 80048; 80053; 81001; 82550; 82565; 83735; 83880; 84484; 84520; 85027; 86787; 87040; 87086; 93005; 93306; 94640; J3010; J7512; J7613; J7626; Q9967